=== PATIENT | female | born 1965 | race Caucasian/White ===

== ENCOUNTER 2021-01-04 12:02 | Inpatient (IN) | payer SELFPAY ==
[2021-01-04 12:08] VITALS: BMI 22.7
[2021-01-04 12:23] VITALS: BP 171/72; PULSE 69; RESP 18; TEMP 36; O2SAT 100
--- NOTE | 2021-01-04 12:29 | PC.NURSE ---
Admit note Patient is a 55 year old female presents as a direct admit from [facility]. Patient ambulated into hospital with EMS staff. Patient is pleasant and in good spirits. She states she was admitted at [facility] because she was depressed, and describes life as falling apart. patient has recently lost her home, income, insurance and has no where to go. Patient feels hopeless and overwhelmed. She has a long history of drug and alcohol use. States that she quit drinking about 10 year ago, used THC last week and used Meth about 5 months ago. Patient states that she has a brother that does not talk to her anymore, and has a 18 year old daughter that lives in [facility]. She explains that her brother no longer talks to her because of her drug use.
[2021-01-04 14:00] VITALS: BP 171/72; PULSE 69; RESP 18; TEMP 36; O2SAT 100
[2021-01-04] MEDS: hyDROXYzine 25 mg Capsule 50 MG PO (17:58)
[2021-01-04 20:11] VITALS: BP 188/73; PULSE 85; RESP 16; TEMP 36.4; O2SAT 97
[2021-01-05] MEDS: hyDROXYzine 25 mg Capsule 50 MG PO (00:46)
--- NOTE | 2021-01-05 02:18 | PC.NURSE ---
Late Entry - 01/04/21 @ 1758 Administered Vistaril 50mg PO for PT C/O of increasing anxiety.
[2021-01-05] MEDS: OLANZapine 5 mg ODT PO (02:41)
[2021-01-05 06:00] VITALS: BP 144/69; PULSE 94; RESP 18; TEMP 37.3; O2SAT 95
[2021-01-05] MEDS: citalopram 20 mg Tablet 10 MG PO (08:35)
[2021-01-05] MEDS: lisinopril 20 mg Tablet 40 MG PO (08:35)
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
[2021-01-05 11:40] VITALS: BP 144/69; PULSE 94; RESP 18; TEMP 37.3; O2SAT 95
== END 2021-01-05 15:09 | disposition home or self-care (01) | DRG 897 ==
PROVIDERS: Admitting Provider Psychiatry & Neurology Psychiatry; Visit Provider Psychiatry & Neurology Psychiatry
DX: F19.14 Other psychoactive substance abuse with psychoactive substance-induced mood disorder (principal); R45.851 Suicidal ideations; F15.10 Other stimulant abuse, uncomplicated